=== PATIENT | female | born 1975 | race Hispanic/Latino ===

== ENCOUNTER 2021-01-31 12:56 | Emergency (ER) | payer SELFPAY ==
[~2021-01-31] VITALS: Ht 154.9 cm; Wt 81.6 kg
[2021-01-31] MEDS ORDERED: ONDANSETRON HCL INJ 2MG/ML 2ML 2 MG/ML VIAL IV STA (13:15)
[2021-01-31] MEDS ORDERED: MORPHINE SULFATE 5 MG/ML VIAL IV ONE (13:15)
[2021-01-31] MEDS ORDERED: ONDANSETRON HCL INJ 2MG/ML 2ML 2 MG/ML VIAL ONE (13:53)
[2021-01-31] MEDS ORDERED: MORPHINE SULFATE INJ 4 MG/ML INJ 1ML ONE (13:53)
[2021-01-31] MEDS ORDERED: KETOROLAC TROME10 MG PO (15:46)
== END 2021-01-31 15:54 | disposition home or self-care (01) ==
LOC: FSED 13:09
DX: R10.11 Right upper quadrant pain (principal); K80.80 Other cholelithiasis without obstruction; D64.9 Anemia, unspecified
CPT/HCPCS: 74176; 76705; 80053; 81003; 81025; 85025; 99283; J2270 ×2; J2405

== ENCOUNTER 2021-12-27 06:19 | Observation (INO) | payer SELFPAY ==
[2021-12-25 15:46] LABS: BASOPHILS # (AUTO) 0.1 (0.0-0.1); BASOPHILS % 0.6 % (0.0-1.0); EOSINOPHILS # (AUTO) 0.2 (0.0-0.4); EOSINOPHILS % 2.6 % (0.0-6.0); HEMATOCRIT 35.4 % (34.2-44.1); HEMOGLOBIN 10.8 g/dL (12.0-16.0); LYMPHOCYTES # (AUTO) 1.6 (1.0-3.2); LYMPHOCYTES % 18.5 % (18.0-39.1); MEAN CORPUSCULAR HEMOGLOBIN 24.9 pg (28-32); MEAN CORPUSCULAR HGB CONC 30.5 g/dL (31-35); MEAN CORPUSCULAR VOLUME 81.6 fL (81-99); MONOCYTES # (AUTO) 0.7 (0.2-0.8); MONOCYTES % 8.2 % (4.4-11.3); NEUTROPHILS # (AUTO) 5.9 (2.1-6.9); NEUTROPHILS % 69.7 % (38.7-80.0); PLATELET COUNT 381 x10e3/uL (140-360); RED BLOOD COUNT 4.34 x10e6/uL (3.6-5.1); RED CELL DISTRIBUTION WIDTH 17.3 % (11.7-14.4)
[2021-12-25 16:03] LABS: ALBUMIN 3.4 g/dL (3.5-5.0); ALBUMIN/GLOBULIN RATIO 0.8 (0.8-2.0); ANION GAP 13.8 mmol/L (8-16); CALCIUM 8.2 mg/dL (8.4-10.2); CREATININE, SERUM 0.66 mg/dL (0.57-1.11); POTASSIUM 3.8 mmol/L (3.5-5.1)
[2021-12-27] VITALS (7 sets, daily range): BP systolic 114–131; BP diastolic 61–80
[~2021-12-27] VITALS: Ht 154.9 cm; Wt 81.6 kg
[~2021-12-27 06:19] MED LIST: FERROUS SULFAT325 MG PO; KETOROLAC TROME10 MG PO; MULTI-VITAMIN1 EACH PO; vit d3 PO
[2021-12-27] MEDS ORDERED: ESTROGENS CONJUGATED VAGINAL CR 45 GM TUBE PV ONE (07:05)
[2021-12-27] MEDS ORDERED: LIDOCAINE 2% /EPINEPHRINE 20 ML SDV INJ ONE (07:05)
[2021-12-27] MEDS ORDERED: BUPIVACAINE 0.25% 30ML SDV ONE (07:06)
[2021-12-27] MEDS ORDERED: LIDOCAINE HCL 2% LOCAL INJ 5 ML SDV VIAL INJ ONE (08:07)
[2021-12-27] MEDS ORDERED: KETOROLAC TROMETHAMINE 30 MG/ML VIAL ONE (08:07)
[2021-12-27] MEDS ORDERED: DEXAMETHASONE SOD PHOS INJ 4 MG/ML SDV ONE (08:07)
[2021-12-27] MEDS ORDERED: SEVOFLURANE INHAL SOLN 250 ML PEN BTL ONE (08:07)
[2021-12-27] MEDS ORDERED: POVIDONE IODINE 0.05% 0.05 % ML PO ONE (08:07)
[2021-12-27] MEDS ORDERED: ONDANSETRON HCL INJ 2MG/ML 2ML 2 MG/ML VIAL ONE (08:07)
[2021-12-27] MEDS ORDERED: ROCURONIUM BROMIDE 10 MG/ML 5ML VIAL IV ONE (08:07)
[2021-12-27] MEDS ORDERED: PROPOFOL IV EMULSION 10 MG/ML 20 ML VIAL ONE (08:07)
[2021-12-27] MEDS ORDERED: ACETAMINOPHEN 1000 MG/100 ML IV ONE (08:07)
[2021-12-27] MEDS ORDERED: HYDROCODONE/APAP 5MG-325MG TAB PO PRN (09:30)
[2021-12-27] MEDS ORDERED: DIPHENHYDRAMINE HCL 25 MG CAP PO PRN (09:30)
[2021-12-27] MEDS ORDERED: KETOROLAC TROMETHAMINE 30 MG/ML VIAL IM PRN (09:30)
[2021-12-27] MEDS ORDERED: PROMETHAZINE HCL (IM) 25 MG/ML VIAL IM PRN (09:30)
[2021-12-27] MEDS ORDERED: DOCUSATE SODIUM 100 MG CAP PO PRN (09:30)
[2021-12-27] MEDS ORDERED: FENTANYL CITRATE/PF 100MCG/2 ML INJ ONE ×2 (10:09→10:11)
[2021-12-27] MEDS ORDERED: MIDAZOLAM HCL 2 MG/2 ML VIAL ONE (10:09)
[2021-12-27] MEDS: HYDROMORPHONE 1MG/1ML INJ IV PRN ×3 (11:05→23:22)
[2021-12-27] MEDS: LACTATED RINGER'S 1,000 ML IV SCH ×2 (11:14→20:09)
[2021-12-28] VITALS: BP 115/63
[2021-12-28] MEDS: LACTATED RINGER'S 1,000 ML IV SCH (02:37)
[2021-12-28 04:00] VITALS: BP 129/67
[2021-12-28 04:42] LABS: HEMATOCRIT 30.6 % (34.2-44.1); HEMOGLOBIN 9.7 g/dL (12.0-16.0)
[2021-12-28 08:15] VITALS: BP 124/72
[2021-12-28 08:30] VITALS: BP 124/72
== END 2021-12-28 11:22 | disposition home or self-care (01) ==
LOC: OR 06:19 → PACU V 09:23 → MED/SURG 10:29
PROVIDERS: ADMIT Obstetrics & Gynecology; ATTEND Obstetrics & Gynecology
DX: D25.9 Leiomyoma of uterus, unspecified (principal); N93.9 Abnormal uterine and vaginal bleeding, unspecified
CPT/HCPCS: 0223U; 36415 ×2; 58260; 80053; 84702; 85014; 85018; 85025; 86850; 86900; 88307; 93005; 96361; G0378 ×2; J0131; J0690; J1100; J1170; J1885; J2001 ×2; J2250; J2405; J2704; J3010; J7121 ×2

== ENCOUNTER → 2024-08-17 | Outpatient (REF) | payer OTHER | LOC: NM 08:22 | PROVIDERS: ATTEND Nurse Practitioner Family | DX: K80.20 Calculus of gallbladder without cholecystitis without obstruction (principal) | CPT/HCPCS: 78227; A9537 ==

== ENCOUNTER 2024-09-02 20:14 | Inpatient (IN) | payer OTHER ==
[~2024-09-02] VITALS: Ht 154.9 cm; Wt 84.8 kg
[~2024-09-02 20:14] MED LIST changes: +SEVOFLURANE INHAL SOLN 250 ML PEN BTL ONE
[2024-09-02 20:45] VITALS: PULSE 65; RESP 19; TEMP 98.1
[2024-09-02] MEDS ORDERED: Morphine 4mg INJECTION 4 MG/ML INJ IV PRN (22:15)
[2024-09-02 22:49] LABS: BASOPHILS % 0.2 % (0.0-1.0); EOSINOPHILS # (AUTO) 0.1 (0.0-0.4); EOSINOPHILS % 0.9 % (0.0-6.0); HEMATOCRIT 37.8 % (34.2-44.1); HEMOGLOBIN 12.5 g/dL (12.0-16.0); LYMPHOCYTES # (AUTO) 1.2 (1.0-3.2); LYMPHOCYTES % 14.2 % (18.0-39.1); MEAN CORPUSCULAR HEMOGLOBIN 30.4 pg (28-32); MEAN CORPUSCULAR HGB CONC 33.1 g/dL (31-35); MONOCYTES # (AUTO) 0.5 (0.2-0.8); MONOCYTES % 6.4 % (4.4-11.3); NEUTROPHILS # (AUTO) 6.4 (2.1-6.9); NEUTROPHILS % 78.1 % (38.7-80.0); PLATELET COUNT 266 x10e3/uL (140-360); RED BLOOD COUNT 4.11 x10e6/uL (3.6-5.1); RED CELL DISTRIBUTION WIDTH 12.1 % (11.7-14.4); WHITE BLOOD COUNT 8.23 x10e3/uL (4.8-10.8)
[2024-09-02 23:12] LABS: ALBUMIN 3.7 g/dL (3.5-5.0); ALBUMIN/GLOBULIN RATIO 1.1 (0.8-2.0); ANION GAP 14.9 mmol/L (8-16); BILIRUBIN,TOTAL 1.2 mg/dL (0.2-1.2); CALCIUM 8.7 mg/dL (8.4-10.2); CREATININE, SERUM 0.68 mg/dL (0.57-1.11); POTASSIUM 3.9 mmol/L (3.5-5.1)
[2024-09-02] MEDS: Morphine 4mg INJECTION 4 MG/ML INJ IV STA (23:25)
[2024-09-02] MEDS: ONDANSETRON HCL INJ 2MG/ML 2ML 2 MG/ML VIAL IV STA (23:26)
[2024-09-02] MEDS: SODIUM CHLORIDE 0.9% 1000ML 1,000 ML IV SCH (23:27)
[2024-09-02] MEDS ORDERED: IOPAMIDOL 370 MG/ML 100 ML INFUS..BTL INJ ONE (23:44)
[2024-09-03] VITALS (13 sets, daily range): BP systolic 126–138; BP diastolic 75–82; PULSE 55–87; RESP 16–20; TEMP 97.3–99.3; O2SAT 94–100
[2024-09-03] MEDS ORDERED: POLYETHYLENE GLYCOL 3350 17 GM PACK PO PRN (00:45)
[2024-09-03] MEDS ORDERED: HYDRALAZINE HCL 20 MG/ML VIAL IV PRN (00:45)
[2024-09-03 01:18] LABS: BILIRUBIN,URINE NEGATIVE (NEGATIVE); CLARITY,URINE CLEAR (CLEAR); COLOR,URINE YELLOW (YELLOW); GLUCOSE, URINE NEGATIVE (NEGATIVE); KETONES,URINE NEGATIVE (NEGATIVE); LEUKOCYTE ESTERASE ,URINE TRACE (NEGATIVE); NITRITE,URINE NEGATIVE (NEGATIVE); PH,URINE 6 (5 - 7); PREGNANCY TEST, URINE NEGATIVE (NEGATIVE); PROTEIN,URINE DIPSTICK NEGATIVE (NEGATIVE); URINE UROBILINOGEN 0.2 mg/dL (0.2 - 1)
[2024-09-03 01:37] LABS: BACTERIA,URINE MANY /HPF; EPITHELIAL CELLS,URINE MODERATE /LPF
[2024-09-03 04:59] LABS: BASOPHILS % 0.5 % (0.0-1.0); EOSINOPHILS # (AUTO) 0.1 (0.0-0.4); EOSINOPHILS % 1.3 % (0.0-6.0); HEMATOCRIT 36.1 % (34.2-44.1); HEMOGLOBIN 12.2 g/dL (12.0-16.0); LYMPHOCYTES # (AUTO) 1.2 (1.0-3.2); LYMPHOCYTES % 13.5 % (18.0-39.1); MEAN CORPUSCULAR HGB CONC 33.8 g/dL (31-35); MEAN CORPUSCULAR VOLUME 91.9 fL (81-99); MONOCYTES # (AUTO) 0.5 (0.2-0.8); MONOCYTES % 5.6 % (4.4-11.3); NEUTROPHILS # (AUTO) 6.8 (2.1-6.9); NEUTROPHILS % 78.9 % (38.7-80.0); PLATELET COUNT 251 x10e3/uL (140-360); RED BLOOD COUNT 3.93 x10e6/uL (3.6-5.1); RED CELL DISTRIBUTION WIDTH 12.2 % (11.7-14.4)
[2024-09-03 06:06] LABS: ALBUMIN 3.2 g/dL (3.5-5.0); ALBUMIN/GLOBULIN RATIO 1.1 (0.8-2.0); ANION GAP 12.8 mmol/L (8-16); CALCIUM 7.9 mg/dL (8.4-10.2); CREATININE, SERUM 0.69 mg/dL (0.57-1.11); POTASSIUM 3.8 mmol/L (3.5-5.1); TOTAL PROTEIN 6.2 g/dL (6.5-8.1)
[2024-09-03 06:07] LABS: CHOL/HDL RATIO 3.2 (3.0-3.6); PHOSPHORUS 3.6 MG/DL (2.3-4.7)
[2024-09-03 06:19] LABS: FREE T4 (FREE THYROXINE) 0.91 ng/dL (0.8-1.8); THYROID STIMULATING HORMONE 1.267 uIU/mL (0.350-4.940)
[2024-09-03] MEDS: FAMOTIDINE 20 MG TAB PO SCH (17:38)
[2024-09-04 05:56] VITALS: BP 135/74; PULSE 60; RESP 18; TEMP 98.2; O2SAT 100
[2024-09-04 08:11] VITALS: PULSE 63; RESP 17; O2SAT 98
[2024-09-04 08:39] VITALS: BP 129/77; PULSE 52; RESP 18; TEMP 98; O2SAT 98
[2024-09-04 08:40] VITALS: BP 129/77; PULSE 52; RESP 18; TEMP 98; O2SAT 98
[2024-09-04 12:20] VITALS: BP 138/74; PULSE 58; RESP 18; TEMP 98.1; O2SAT 98
[2024-09-04] MEDS ORDERED: LIDOCAINE HCL 2% LOCAL INJ 5 ML SDV VIAL INJ ONE ×2 (14:38→14:59)
[2024-09-04] MEDS ORDERED: PROPOFOL IV EMULSION 10 MG/ML 20 ML VIAL ONE ×3 (14:38→15:45)
[2024-09-04] MEDS ORDERED: ROCURONIUM BROMIDE 1 ML IV ONE (14:39)
[2024-09-04] MEDS ORDERED: MIDAZOLAM HCL 2 MG/2 ML VIAL ONE (15:00)
[2024-09-04] MEDS ORDERED: FENTANYL CITRATE/PF 100MCG/2 ML INJ ONE (15:00)
[2024-09-04] MEDS ORDERED: ACETAMINOPHEN 1000 MG/100 ML 100 ML IV ONE (15:20)
[2024-09-04] MEDS ORDERED: ONDANSETRON HCL INJ 2MG/ML 2ML 2 MG/ML VIAL ONE (15:23)
[2024-09-04] MEDS ORDERED: DEXAMETHASONE SOD PHOS INJ 4 MG/ML SDV ONE (15:23)
[2024-09-04] MEDS ORDERED: KETOROLAC TROMETHAMINE 30 MG/ML VIAL ONE (15:38)
[2024-09-04] MEDS ORDERED: SUGAMMADEX SODIUM 200 MG/2 ML VIAL IV ONE (15:52)
[2024-09-04] MEDS: FENTANYL CITRATE/PF 100MCG/2 ML INJ ONE (17:20)
[2024-09-04 18:09] VITALS: BP 126/75; PULSE 58; RESP 16; TEMP 97.7; O2SAT 96
[2024-09-04] MEDS: ONDANSETRON HCL INJ 2MG/ML 2ML 2 MG/ML VIAL IV PRN (18:32)
[2024-09-04] MEDS: ACETAMINOPHEN 325 MG TAB PO PRN (21:31)
[2024-09-05 00:38] VITALS: BP 152/81; PULSE 64; RESP 16; TEMP 97.9; O2SAT 98
[2024-09-05 04:34] VITALS: BP 125/63; PULSE 56; RESP 16; TEMP 98.1; O2SAT 97
[2024-09-05 04:56] LABS: BASOPHILS % 0.2 % (0.0-1.0); HEMOGLOBIN 12.7 g/dL (12.0-16.0); LYMPHOCYTES # (AUTO) 0.9 (1.0-3.2); LYMPHOCYTES % 7.3 % (18.0-39.1); MEAN CORPUSCULAR HEMOGLOBIN 30.8 pg (28-32); MEAN CORPUSCULAR HGB CONC 33.4 g/dL (31-35); MEAN CORPUSCULAR VOLUME 92.2 fL (81-99); MONOCYTES # (AUTO) 0.6 (0.2-0.8); MONOCYTES % 4.6 % (4.4-11.3); NEUTROPHILS # (AUTO) 11.3 (2.1-6.9); NEUTROPHILS % 87.7 % (38.7-80.0); PLATELET COUNT 278 x10e3/uL (140-360); RED BLOOD COUNT 4.12 x10e6/uL (3.6-5.1); RED CELL DISTRIBUTION WIDTH 11.9 % (11.7-14.4); WHITE BLOOD COUNT 12.92 x10e3/uL (4.8-10.8)
[2024-09-05 05:16] LABS: ALANINE AMINOTRANSFERASE 173 IU/L (0-55); ALBUMIN 3.5 g/dL (3.5-5.0); ALKALINE PHOSPHATASE 79 IU/L (40-150); ANION GAP 13.7 mmol/L (8-16); BILIRUBIN,TOTAL 1.2 mg/dL (0.2-1.2); BLOOD UREA NITROGEN < 5 mg/dL (7-26); CALCIUM 8.5 mg/dL (8.4-10.2); CARBON DIOXIDE 21 mmol/L (22-29); CHLORIDE 107 mmol/L (98-107); CREATININE, SERUM 0.67 mg/dL (0.57-1.11); EST GLOMERULAR FILTRATION RATE 106 ML/MIN (>=60); GLUCOSE 110 mg/dL (74-118); POTASSIUM 3.7 mmol/L (3.5-5.1); SODIUM 138 mmol/L (136-145); TOTAL PROTEIN 6.9 g/dL (6.5-8.1)
[2024-09-05 06:00] LABS: BUN/CREATININE RATIO 7 (6-25)
[2024-09-05 06:41] VITALS: BP 100/77
[2024-09-05] MEDS: HYDROCODONE/APAP 7.5MG-325MG 1 EA TAB PO PRN (07:56)
[2024-09-05 08:01] VITALS: BP 122/72; PULSE 53; RESP 18; TEMP 97.9; O2SAT 99
[2024-09-05 09:00] VITALS: BP 122/72; PULSE 53; RESP 18; TEMP 97.9; O2SAT 99
[2024-09-05 11:22] VITALS: BP 136/84; PULSE 50; RESP 18; TEMP 98.4; O2SAT 100
== END 2024-09-05 17:45 | disposition home or self-care (01) | DRG 418 ==
LOC: ER 20:17 → ERHOLD 22:32 → MED/SURG 09-03 00:05
PROVIDERS: ADMIT Internal Medicine; ATTEND Internal Medicine
PROC: 0FT44ZZ Resection of Gallbladder, Percutaneous Endoscopic Approach (ICD-10-PCS; principal; 2024-09-04 15:11)
DX: K80.12 Calculus of gallbladder with acute and chronic cholecystitis without obstruction (principal); B17.9 Acute viral hepatitis, unspecified; K75.89 Other specified inflammatory liver diseases; R00.2 Palpitations; L71.9 Rosacea, unspecified; R74.01 Elevation of levels of liver transaminase levels; Z90.710 Acquired absence of both cervix and uterus
CPT/HCPCS: 36415; 76705; 80053; 80061; 81001; 81025; 82948; 83036; 83690; 83735; 84100; 84439; 84443; 85025; 88304; 93005; 94799; 99252; 99284; C1766; J1100; J1885; J2003; J2250; J2270; J2405; J2543; J7030; Q9967